=== PATIENT | male | born 1960 | race Hispanic/Latino ===

== ENCOUNTER → 2019-12-29 | Outpatient (CLI) | payer OTHER ==
[~2019-12-29] MED LIST: AMLODIPINE BESYL5 MG PO; ATORVASTATIN CA40 MG PO; CYCLOBENZAPRINE10 MG PO; HYDROCHLOROTH12.5 M1 PO; IOPAMIDOL 370 MG/ML 200 ML INFUS..BTL INJ ONE; LISINOPRIL20 MG PO; SODIUM CHLORIDE 0.9% 250ML 0 ML ONE; SODIUM CHLORIDE 0.9% 50ML 0 ML ONE; SODIUM CHLORIDE 0.9% 50ML 50 ML ONE; VESICARE
[2019-12-29 08:19] LABS: BLOOD UREA NITROGEN 16 mg/dL (7-26); BUN/CREATININE RATIO 16 (6-25); CREATININE, SERUM 0.99 mg/dL (0.72-1.25); EST GLOMERULAR FILTRATION RATE > 60 ML/MIN (60-)
--- NOTE | 2019-12-29 10:20 | Diagnostic Imaging Report ---
CT of the abdomen and pelvis, with contrast, 12/29/2019. History: Hematuria. Comparison: None available. Technique: Multidetector CT scanning of the abdomen and pelvis was performed from the level of the lung bases to the inferior pubic rami before and after intravenous administration of contrast. Scanning during arterial, venous, and delayed phases was performed. No oral contrast was given. Coronal and sagittal multiplanar reformations were obtained. RADIATION DOSE: Total DLP: 2091 mGy*cm Dose modulation, iterative reconstruction, and/or weight based adjustment of the mA/kV was utilized to reduce the radiation dose to as low as reasonably achievable. Discussion: LUNG BASES: No visualized abnormalities. ABDOMEN: 2 large oval circumscribed hypodense structures consistent with simple cysts are present in the right kidney, one posteriorly in the upper pole measuring 7.2 cm and another more centrally measuring 8.5 cm, without evidence of septation, mural nodularity, or enhancement. Multiple calyceal stones are present within the right kidney, ranging from 2 to 13 mm in diameter. There is moderate dilatation of the right upper pole calyx. The right renal pelvis is not dilated. Single ureters are identified bilaterally which are nondilated. Two 1 cm simple cysts are present in the lower pole of the left kidney. Left kidney is otherwise normal without evidence of stones, mass, or hydronephrosis. The liver, gallbladder, biliary tree, spleen, pancreas, adrenal glands, and kidneys are normal. The hepatic vein, portal vein, and splenic vein are patent. The abdominal aorta is within normal limits for size. Evaluation of bowel is limited without oral contrast. There is no bowel dilatation. The appendix is visualized and is normal. There are scattered colonic diverticuli without evidence of adjacent inflammation. There is no evidence of adenopathy or free fluid. PELVIS: The bladder, prostate, and seminal vesicles are unremarkable. Fat-containing left inguinal hernia is present. There is no evidence of free fluid or adenopathy. BONES AND SOFT TISSUES: Degenerative changes are present throughout the lumbar spine without evidence of lytic or sclerotic lesion. IMPRESSION: 1. Bilateral benign-appearing simple renal cysts, large on the right and small on the left. 2. Right nephrolithiasis with right upper pole calyceal dilatation. It is uncertain whether this is secondary to stone or compression by adjacent large cyst. 3. Colonic diverticulosis without evidence of diverticulitis. Signed by: Jer Jane on 12/29/2019 10:17 AM
== END ==
LOC: CT 07:29
PROVIDERS: ATTEND Urology
DX: D41.00 Neoplasm of uncertain behavior of unspecified kidney (principal); R31.29 Other microscopic hematuria
CPT/HCPCS: 36415; 74178; 82565; 84520; J7050; Q9967

== ENCOUNTER → 2020-02-02 | Day surgery (SDC) | payer OTHER ==
[2020-02-01 14:25] LABS: BASOPHILS # (AUTO) 0.1 (0.0-0.1); BASOPHILS % 0.5 % (0.0-1.0); EOSINOPHILS # (AUTO) 0.1 (0.0-0.4); EOSINOPHILS % 0.6 % (0.0-6.0); LYMPHOCYTES # (AUTO) 2.7 (1.0-3.2); LYMPHOCYTES % 24.2 % (18.0-39.1); MEAN CORPUSCULAR HEMOGLOBIN 29.7 pg (28-32); MEAN CORPUSCULAR HGB CONC 32.5 g/dL (31-35); MEAN CORPUSCULAR VOLUME 91.3 fL (81-99); MONOCYTES # (AUTO) 0.7 (0.2-0.8); MONOCYTES % 6.5 % (4.4-11.3); NEUTROPHILS # (AUTO) 7.4 (2.1-6.9); NEUTROPHILS % 67.7 % (38.7-80.0); PLATELET COUNT 264 x10e3/uL (140-360); RED BLOOD COUNT 4.38 x10e6/uL (4.3-5.7); RED CELL DISTRIBUTION WIDTH 15.5 % (11.7-14.4)
--- NOTE | 2020-02-01 14:44 | Diagnostic Imaging Report ---
EXAM: Abdomen Radiograph 1 View(s) INDICATION: ^PREOP COMPARISON: None FINDINGS: The bowel gas pattern is nonspecific. Moderate formed stool within the colon. No abnormal soft tissue calcification. No discrete free intraperitoneal air or fluid. Mild lower lumbar spine degenerative change. IMPRESSION: No acute abdominal radiographic abnormality. Signed by: Shubham Shell MD on 02/01/2020 2:41 PM
[2020-02-01 14:52] LABS: ANION GAP 11.8 mmol/L (8-16); BLOOD UREA NITROGEN 17 mg/dL (7-26); BUN/CREATININE RATIO 16 (6-25); CALCIUM 9.7 mg/dL (8.4-10.2); CARBON DIOXIDE 28 mmol/L (22-29); CHLORIDE 105 mmol/L (98-107); CREATININE, SERUM 1.08 mg/dL (0.72-1.25); EST GLOMERULAR FILTRATION RATE > 60 ML/MIN (60-); GLUCOSE 82 mg/dL (74-118); POTASSIUM 3.8 mmol/L (3.5-5.1); SODIUM 141 mmol/L (136-145)
[~2020-02-02] MED LIST changes: +ASPIRIN81 MG PO; +B&O 60MG R/S 60 MG SUPP PR ONE; +CALCIUM PO; +CEFTRIAXONE SOD 1 GM/NS 50 ML 50 ML IV ONE; +CITRACAL SOFT1 EACH PO; +DEXAMETHASONE SOD PHOS INJ 4 MG/ML VIAL ONE; +HUMIRA40 MG/0.8 SC; -IOPAMIDOL 370 MG/ML 200 ML INFUS..BTL INJ ONE; +IOPAMIDOL 610MG/1ML 300 MG/ML VIAL IV ONE; +LIDOCAINE HCL 2% LOCAL INJ 5 ML SDV VIAL INJ ONE; +MELOXICAM7.5 MG PO; +METFORMIN HCL500 MG PO; +METHYLPREDNISOLO4 M1 PO; +MIDAZOLAM HCL 2 MG/2 ML VIAL ONE; +MULTIVITAMINS1 EAC7 PO; +OMEPRAZOLE40 MG PO; +ONDANSETRON HCL INJ 2MG/ML 2ML 2 MG/ML VIAL ONE; +OXYBUTYNIN CHLOR5 MG PO; +PROPOFOL IV EMULSION 10 MG/ML 20 ML VIAL ONE; +SEVOFLURANE INHAL SOLN 250 ML PEN BTL ONE; -SODIUM CHLORIDE 0.9% 250ML 0 ML ONE; -SODIUM CHLORIDE 0.9% 50ML 0 ML ONE; -SODIUM CHLORIDE 0.9% 50ML 50 ML ONE; +TRIBENZOR 40-11 EACH PO; +VITAMIN A10000 UNIT PO; +VITAMIN D PO; +[UNRECOGNIZED DRUG - OTHER] PO
--- OUTSIDE RECORDS SUMMARY | 2020-02-02 05:31 | XMS REPORT | Continuity of Care Document ---
Author Author [facility] Address [address] [place] [address] ;ext= Care Team Providers Care Field Support Rep Name Role Phone DWIGHT LEYLA Admmahendra LEYLA QUINTANILLA [facility] Admission Diagnosis * No data in the System Social History Element Description Code Description Smoking Status Code System Start Date End Date Smoking Status [id number] Never smoker SNOMED-CT Problems Code Code System Problem Name Start Date End Date Status T2,T3,T4 Vertebral body fracture 03/25/2019 Active Medications RxNorm Medication Dose Route Instructions Indications Start Date End Date Status Amlodipine Oral every day Active 1191 Aspirin 81 milligram oral orally every day Active Atorvastatin Oral every day Active Losartan Oral every day Active Metformin Oral 1000 milligram oral orally once Active Allergies * No Known Allergies Results Laboratory Results Order: CBC PLATELET AUTO DIFF Specimen Source: BLOOD Body Site: [facility] Test Result Flag Range Unit Date 1Leukocytes^^corrected for nucleated erythrocytes:NCnc:Pt:Bld:Qn:Automated count 15.56 H 4.80-10.80 10^3/ul 03/25/2019 17:39 789-8 1Erythrocytes:NCnc:Pt:Bld:Qn:Automated count 4.64 L 4.70-6.10 10^6/ul 03/25/2019 17:39 718-7 1Hemoglobin:MCnc:Pt:Bld:Qn 14 14.0-18.0 gm/dl 03/25/2019 17:39 4544-3 1Hematocrit:VFr:Pt:Bld:Qn:Automated count 43.1 42.0-50.0 % 03/25/2019 17:39 787-2 1Erythrocyte mean corpuscular volume:EntVol:Pt:RBC:Qn:Automated count 92.9 80.0-94.0 fL 03/25/2019 17:39 785-6 1Erythrocyte mean corpuscular hemoglobin:EntMass:Pt:RBC:Qn:Automated count 30.2 27.0-31.0 pg 03/25/2019 17:39 786-4 1Erythrocyte mean corpuscular hemoglobin concentration:MCnc:Pt:RBC:Qn:Automated count 32.5 L 33.0-37.0 gm/dl 03/25/2019 17:39 788-0 1Erythrocyte distribution width:Ratio:Pt:RBC:Qn:Automated count 14.8 H 11.5-14.5 % 03/25/2019 17:39 777-3 1Platelets:NCnc:Pt:Bld:Qn:Automated count 261 130-400 10^3/ul 03/25/2019 17:39 89115-1 1Platelet mean volume:EntVol:Pt:Bld:Qn:Automated count 10.7 A 7.4-10.4 fL 03/25/2019 17:39 Note: 'NOT MEASURED' RESULTS ARE DISPLAYED WHEN THE INSTRUMENT HAS A SUPPRESSED OR UNREPORTABLE RESULT. THIS WILL MOST OFTEN HAPPEN WITH THE MPV WHEN THERE IS AN ABNORMAL PLATELET DISTRIBUTION DUE TO A CRITICAL LOW VALUE OR PLATELET CLUMPING. THE RDW MAY BE SUPPRESSED IF THERE ARE MULTIPLE PEAKS PRESENT ON THE RBC HISTOGRAM. IN THIS CASE, A MANUAL REVIEW OF THE SLIDE WILL BE PERFORMED, AND RBC MORPHOLOGY WILL BE NOTED ON THE REPORT. 770-8 1Neutrophils/100 leukocytes:NFr:Pt:Bld:Qn:Automated count 79.8 H 42.0-75.0 % 03/25/2019 17:39 736-9 1Lymphocytes/100 leukocytes:NFr:Pt:Bld:Qn:Automated count 13.2 13.0-42.0 % 03/25/2019 17:39 5905-5 1Monocytes/100 leukocytes:NFr:Pt:Bld:Qn:Automated count 5.5 4.0-14.0 % 03/25/2019 17:39 713-8 1Eosinophils/100 leukocytes:NFr:Pt:Bld:Qn:Automated count 0.3 L 1.0-5.0 % 03/25/2019 17:39 706-2 1Basophils/100 leukocytes:NFr:Pt:Bld:Qn:Automated count 0.4 0.0-3.0 % 03/25/2019 17:39 1IG% 0.8 H 0.0-0.4 % 03/25/2019 17:39 * Performing Lab Footnotes:* [address] [place] [address] - [id number] - [address] [place] [address] - : DIRECTOR DIYA HUGHES Order: CMP COMPREHENSIVE METABOLIC PANEL Specimen Source: BLOOD Body Site: LOINC Test Result Flag Range Unit Date 1Glucose 229 H 75-110 mg/dl 03/25/2019 17:39 1BUN 15 6.0-17.0 mg/dl 03/25/2019 17:39 1Creatinine 1.3 H 0.4-1.2 mg/dl 03/25/2019 17:39 1Sodium 138 137-145 mmol/l 03/25/2019 17:39 1Potassium 3.7 3.5-5.0 mmol/l 03/25/2019 17:39 1Chloride 105 98-107 mmol/l 03/25/2019 17:39 1CO2 24 22-30 mmol/l 03/25/2019 17:39 1Calcium 9 8.4-10.2 mg/dl 03/25/2019 17:39 1T Protein 7.7 5.1-8.7 gm/dl 03/25/2019 17:39 1Albumin 3.7 3.5-4.6 gm/dl 03/25/2019 17:39 1A/G Ratio 0.9 L 1.1-2.2 % 03/25/2019 17:39 1AST (SGOT) 33 11-36 U/L 03/25/2019 17:39 1ALT (SGPT) 42 H 11-40 U/L 03/25/2019 17:39 1Alkaline Phos 133 H 47-114 U/L 03/25/2019 17:39 1Total Bilirubin 0.3 0.2-1.2 mg/dl 03/25/2019 17:39 1Globulin 4 H 2.3-3.5 gm/dl 03/25/2019 17:39 1Calcium, Corrected 9.2 8.4-10.2 mg/dl 03/25/2019 17:39 Note: Various formulas exist for corrected serum calcium results, each yielding different values. This corrected result was based on the formula: Corrected Calcium=SerumCalcium + [0.8 * ( 4 - SerumAlbumin)] 1EGFR if >60 mL/min/1.73m^2 03/25/2019 17:39 1EGFR if Non- 60 mL/min/1.73m^2 03/25/2019 17:39 Note: Estimated Glomerular Filtration Rate (eGFR) Reference Intervals Decision Points for 18 years and older and average body mass: >=60 Does not exclude kidney disease. 30 - 59 Suggests moderate chronic kidney disease and indicates the need for further investigation including assessment of proteinuria and cardiovascular factors. < 30 Usually indicates a need for referral for assessment and management of chronic kidney failure. * Performing Lab Footnotes:* [address] [place] [address] - [id number] - [facility] [address] - MD: DIRECTOR DIYA HUGHES Radiology Results Order: [id number] CT CERVICAL SPINE W/O CONTRAST* Exam Completion Date:03/25/2019 17:36 EXAMINATION: Head and cervical spine CT without contrast. HISTORY: Headache.COM PARISON: None.TECHNIQUE: Multidetector axial images were obtained with, without contrastfrom the foramen magnum to the vertex and through the cervical spine. The imageswere reconstructed using brain and bone algorithms. Thin section brai n imageswere reformatted into coronal and sagittal planes.Intravenous contrast: None. Dose modulation, iterative reconstruction, and/or weight based adjustment of themA/kV was utilized to reduce the radiation dose to as low as reasonablyach ievable.HEAD CT FINDINGS: Skull/scalp: Large right frontotemporal scalp ovidio lorraine without underlyingfractures. No lytic or blastic lesions. No fractures. Parenchyma: Scattered small clarifications, likely sequela from remoteinfecti on such as NCC. No mass, hemorrhage or CT evidence of acute vascularinsult. Brain volume: Normal for age. Ventricles: No hydrocephalus or displaceme nt. Arteries: No density suggestive of thrombus. Dural sinuses: No ab normal density. Extra-axial spaces: No abnormal density. Bening right Tempo ral arachnoidcyst without mass effect. Foramen magnum: No mass, Chiari malfo rmation, or basilar invagination. Sella: No obvious mass. Paranasal/m astoid sinuses: Imaged portions unremarkable. CERVICAL SPINE CT FINDINGS: Ali gnment: Normal alignment and lordosis. Soft tissues: Normal. Vertebrae: N ormal height and density. No acute fracture, infection orneoplasm. Interverte bral disk degenerative changes: Anterior bridging osteophytes fromC2 to C7. No s ignificant canal or foraminal stenosis. IMPRESSION:CT Head:1. Large right fro ntotemporal scalp hematoma without underlying fractures.2. No postraumatic intr acranial hemorrhage.CT Cervical:1. No acute fractures or dislocations.2. Chron ic degenerative changes as described.Note: Acute postraumatic spinal cord, vascu lar or ligamentous injuries cannot beexcluded on the basis of the current examin ation.This final report was electronically signed by Dr Malathi Ledbetter MD 03/25/2019 6:22PMDictated By: MALATHI LEDBETTERDate: 03/25/2019 18:22 Order: [id number] CT HEAD W/O CONTRAST* Exam Completion Date:03/25/2019 17:36 EXAMINATION: Head and cervical spine CT without contrast. HISTORY: Headache.COM PARISON: None.TECHNIQUE: Multidetector axial images were obtained with, without contrastfrom the foramen magnum to the vertex and through the cervical spine. The imageswere reconstructed using brain and bone algorithms. Thin section brai n imageswere reformatted into coronal and sagittal planes.Intravenous contrast: None. Dose modulation, iterative reconstruction, and/or weight based adjustment of themA/kV was utilized to reduce the radiation dose to as low as reasonablyach ievable.HEAD CT FINDINGS: Skull/scalp: Large right frontotemporal scalp ovidio lorraine without underlyingfractures. No lytic or blastic lesions. No fractures. Parenchyma: Scattered small clarifications, likely sequela from remoteinfecti on such as NCC. No mass, hemorrhage or CT evidence of acute vascularinsult. Brain volume: Normal for age. Ventricles: No hydrocephalus or displaceme nt. Arteries: No density suggestive of thrombus. Dural sinuses: No ab normal density. Extra-axial spaces: No abnormal density. Bening right Tempo ral arachnoidcyst without mass effect. Foramen magnum: No mass, Chiari malfo rmation, or basilar invagination. Sella: No obvious mass. Paranasal/m astoid sinuses: Imaged portions unremarkable. CERVICAL SPINE CT FINDINGS: Ali gnment: Normal alignment and lordosis. Soft tissues: Normal. Vertebrae: N ormal height and density. No acute fracture, infection orneoplasm. Interverte bral disk degenerative changes: Anterior bridging osteophytes fromC2 to C7. No s ignificant canal or foraminal stenosis. IMPRESSION:CT Head:1. Large right fro ntotemporal scalp hematoma without underlying fractures.2. No postraumatic intr acranial hemorrhage.CT Cervical:1. No acute fractures or dislocations.2. Chron ic degenerative changes as described.Note: Acute postraumatic spinal cord, vascu lar or ligamentous injuries cannot beexcluded on the basis of the current examin ation.This final report was electronically signed by Dr Malathi Ledbetter MD 03/25/2019 6:22PMDictated By: MALATHI LEDBETTERDate: 03/25/2019 18:22 Order: [id number] CT CHEST W/CONTRAST* Exam Completion Date:03/25/2019 17:36 EXAM: CT Chest, Abdomen and Pelvis WITH contrast INDICATION: Trauma. COMPARISON : None.TECHNIQUE: Chest, abdomen and pelvis were scanned utilizing a multidetect orhelical scanner from the lung apex to the pubic symphysis before and afteradmi nistration of IV contrast. Coronal and sagittal reformations were obtained.Routi ne protocol was performed. Scan was performed when during portal venousphase. IV CONTRAST: 100 cc of Isovue 300. ORAL CONTRAST: None RADIATION DOSE: Total DLP: 2076.3 mGy*cm CTDIvol has been rev iewed. It is below the limits set by the Radiation ProtocolCommittee (RPC). Dose lowering techniques utilized as appropriate. COMPLICATIONS: NoneFIND INGS:LINES and TUBES: None.LUNGS AND AIRWAYS: Central airways are patent. No car dence of pneumonia orpulmonary edema. There is a 3 mm calcified granuloma in the right middle lobe. A2 mm solid nodule in the right middle lobe on series 4, anant ge 92.PLEURA: The pleural spaces are clear.HEART AND MEDIASTINUM: The thyroid gl and is normal. No mediastinal, hilar oraxillary lymphadenopathy. The heart is normal in size.. There is no pericardialeffusion. There are moderate atheroscle rotic calcifications in the coronaryarteries.HEPATOBILIARY: The liver is diffuse hypodense compared to the spleen, consistentwith diffuse hepatic diffuse hepatic steatosis. No focal hepatic lesions. Nobiliary ductal dilation. GALLBLADDER: No radio-opaque stones or sludge. No wall thickening.SPLEEN: No splenomegaly. PANCREAS: No focal masses or ductal dilatation. ADRENALS: No adrenal nodules KIDNEYS/URETERS: Kidneys enhance symmetrically. Multiple right-sided simpleappe aring peripelvic cysts. Moderate right hydronephrosis without hydroureter.There is a right upper pole peripelvic cyst. Subcentimeter left renalhypodensities are too small to characterize. No evidence of left-sided stone.Multiple punctate ri ght-sided renal stones. Layering stones are noted on series5, image 70.GI TRACT: No abnormal distention, wall thickening, or evidence of bowelobstruction. Appendix is normal.PELVIC ORGANS/BLADDER: Unremarkable.LYMPH NODES: No lymphade nopathy.VESSELS: Minimal scattered atherosclerotic changes in the abdominal aort a.PERITONEUM / RETROPERITONEUM: No free air or fluid.BONES: There is an obliquel y oriented fracture extending from the superior toinferior endplate of T2 extend ing into the T3 vertebral body where it involvesthe superior and inferior endpla aly and posterior cortex, and possibly into theT4 vertebral body. There is appro ximately 1 mm of displacement of the posteriorsuperior aspect of the T3 vertebra l body without significant retropulsion orcanal narrowing.SOFT TISSUES: Unremark able. IMPRESSION: Complex obliquely oriented fracture involving the T 2 and T3 vertebral bodies,and possibly the T4 vertebral body. Involvement of the posterior cortex of theT2 vertebral body with approximately 1 mm displacement. No significant bonyretropulsion or canal narrowing. Suggest thoracic spine MRI f or evaluation forsoft tissue injury. No evidence of acute traumatic abnormality in the abdomen or pelvis.Multiple right-sided peripelvic cysts with nonobstructi ng renal stones. Moderateright hydronephrosis without evidence of hydroureter. H epatic steatosis. This final report was electronically signed by Dr August Varner MD 03/25/2019 6:39PMDictated By: TITO VARNERRDate: 03/25/2019 18:39 Order: [id number] CT ABDOMEN/PELVIS W/CONTRAST* Exam Completion Date:03/25/2019 17:36 EXAM: CT Chest, Abdomen and Pelvis WITH contrast INDICATION: Trauma. COMPARISON : None.TECHNIQUE: Chest, abdomen and pelvis were scanned utilizing a multidetect orhelical scanner from the lung apex to the pubic symphysis before and afteradmi nistration of IV contrast. Coronal and sagittal reformations were obtained.Routi ne protocol was performed. Scan was performed when during portal venousphase. IV CONTRAST: 100 cc of Isovue 300. ORAL CONTRAST: None RADIATION DOSE: Total DLP: 2076.3 mGy*cm CTDIvol has been rev iewed. It is below the limits set by the Radiation ProtocolCommittee (RPC). Dose lowering techniques utilized as appropriate. COMPLICATIONS: NoneFIND INGS:LINES and TUBES: None.LUNGS AND AIRWAYS: Central airways are patent. No car dence of pneumonia orpulmonary edema. There is a 3 mm calcified granuloma in the right middle lobe. A2 mm solid nodule in the right middle lobe on series 4, anant ge 92.PLEURA: The pleural spaces are clear.HEART AND MEDIASTINUM: The thyroid gl and is normal. No mediastinal, hilar oraxillary lymphadenopathy. The heart is normal in size.. There is no pericardialeffusion. There are moderate atheroscle rotic calcifications in the coronaryarteries.HEPATOBILIARY: The liver is diffuse hypodense compared to the spleen, consistentwith diffuse hepatic diffuse hepatic steatosis. No focal hepatic lesions. Nobiliary ductal dilation. GALLBLADDER: No radio-opaque stones or sludge. No wall thickening.SPLEEN: No splenomegaly. PANCREAS: No focal masses or ductal dilatation. ADRENALS: No adrenal nodules KIDNEYS/URETERS: Kidneys enhance symmetrically. Multiple right-sided simpleappe aring peripelvic cysts. Moderate right hydronephrosis without hydroureter.There is a right upper pole peripelvic cyst. Subcentimeter left renalhypodensities are too small to characterize. No evidence of left-sided stone.Multiple punctate ri ght-sided renal stones. Layering stones are noted on series5, image 70.GI TRACT: No abnormal distention, wall thickening, or evidence of bowelobstruction. Appendix is normal.PELVIC ORGANS/BLADDER: Unremarkable.LYMPH NODES: No lymphade nopathy.VESSELS: Minimal scattered atherosclerotic changes in the abdominal aort a.PERITONEUM / RETROPERITONEUM: No free air or fluid.BONES: There is an obliquel y oriented fracture extending from the superior toinferior endplate of T2 extend ing into the T3 vertebral body where it involvesthe superior and inferior endpla aly and posterior cortex, and possibly into theT4 vertebral body. There is appro ximately 1 mm of displacement of the posteriorsuperior aspect of the T3 vertebra l body without significant retropulsion orcanal narrowing.SOFT TISSUES: Unremark able. IMPRESSION: Complex obliquely oriented fracture involving the T 2 and T3 vertebral bodies,and possibly the T4 vertebral body. Involvement of the posterior cortex of theT2 vertebral body with approximately 1 mm displacement. No significant bonyretropulsion or canal narrowing. Suggest thoracic spine MRI f or evaluation forsoft tissue injury. No evidence of acute traumatic abnormality in the abdomen or pelvis.Multiple right-sided peripelvic cysts with nonobstructi ng renal stones. Moderateright hydronephrosis without evidence of hydroureter. H epatic steatosis. This final report was electronically signed by Dr August Varner MD 03/25/2019 6:39PMDictated By: TITO VARNERRDate: 03/25/2019 18:39 Vital Signs Vitals Value Date BP Systolic 147 mmHg 03/25/2019 BP Diastolic 73 mmHg 03/25/2019 Pulse Rate 79 (beats)/min 03/25/2019 Respiratory Rate 18 (breaths)/min 03/25/2019 O2% BldC Oximetry 95 % 03/25/2019 Body Temperature 98.2 F 03/25/2019 Height 67 in 03/25/2019 Weight Measured 167.99 lbs 03/25/2019 BSA (Body Surface Area) 1.75617 m2 03/25/2019 BMI (Body Mass Index) 26.3 kg/m2 03/25/2019 Advance Directives Patient does NOT have Living Will Directive Type Effective Date Tromper Notes Supporting Document Name Address Phone No Directive Type specified 03/25/2019 19:23 Not Specified Not Specified Not Specified None No Family History * No Data Reported Plan of Care * No data in the system Procedures Code Code System Procedure Name Target Site Date of Procedure CT ABDOMEN/PELVIS W/CONTRAST 03/25/2019 18:45 Encounters * No data in the system Immunizations * No data in the system Functional Status * No data in the system Hospital Discharge Instructions * No data in the system
--- OUTSIDE RECORDS SUMMARY | 2020-02-02 05:31 | XMS REPORT ---
Author Author [facility] Address Unknown Phone Unavailable Care Team Providers Care Jacker Name Role Phone LUIS CADENA Unavailable Unavailable Problems This patient has no known problems. Allergies, Adverse Reactions, Alerts This patient has no known allergies or adverse reactions. Medications This patient has no known medications. Encounters Start Date/Time End Date/Time Encounter Type Admission Type Attending [facility] Facility Care Department Encounter ID 2019-06-21 16:28:26 Outpatient [facility] [id number] 2019-09-08 06:55:00 2019-09-08 06:55:00 Outpatient [facility] [id number] 2019-08-07 12:11:00 2019-08-07 12:11:00 Outpatient [facility] [id number] 2019-06-23 06:18:00 2019-06-23 06:18:00 Outpatient [facility] [id number] 2019-06-03 19:56:00 2019-06-03 19:56:00 Emergency E [facility] [id number] 2019-04-13 03:20:00 2019-04-12 20:59:00 Inpatient E [facility] [id number] 2019-03-26 01:04:00 2019-03-25 21:13:00 Inpatient U [facility] [id number] Results Test Description Test Time Test Comments Text Results Atomic Results Result Comments ABDOMEN-1VIEW (KUB) 2020-02-01 14:37:00 [facility] [address] [place] [address] Patient Name: RM SCHUMACHER MR #: [id number] : 1960 Age/Sex: 60/M Req #: [id number] Adm Physician: Ordered by: LUIS CADENA MD Report #: [id number] Location: OR Room/Bed: Procedure: [id number] DX/ABDOMEN-1VIEW (KUB) Exam Date: Exam Time: REPORT STATUS: Signed EXAM: Abdomen Radiograph 1 View(s) INDICATION: PREOP COMPARISON: None FINDINGS: The bowel gas pattern is nonspecific. Moderate formed stool within the colon. No abnormal soft tissue calcification. No discrete free intraperitoneal air or fluid. Mild lower lumbar spine degenerative change. IMPRESSION: No acute abdominal radiographic abnormality. Signed by: Bertrand Santos MD on 02/01/2020 2:41 PM Dictated By: BERTRAND SANTOS MD 1441 Transcribed By: JEFFERSON on 02/01/20 1441 COPY TO: LUIS CADENA MD CT ABDOMEN/PELVIS WOW 2019-12-29 10:00:00 [place] [address] Patient Name: RM SCHUMACHER MR #: [id number] : 1960 Age/Sex: 59/M Req #: [id number] Adm Physician: Ordered by: LUIS CADENA MD Report #: [id number] Location: CT Room/Bed: Procedure: [id number] CT/CT ABDOMEN/PELVIS WOW Exam Date: 12/29/19 Exam Time: 0850 REPORT STATUS: Signed CT of the abdomen and pelvis, with contrast, 12/29/2019. History: Hematuria. Comparison: None available. Technique: Multidetector CT scanning of the abdomen and pelvis was performed from the level of the lung bases to the inferior pubic rami before and after intravenous administration of contrast. Scanning during arterial, venous, and delayed phases was performed. No oral contrast was given. Coronal and sagittal multiplanar reformations were obtained. RADIATION DOSE: Total DLP: 2091 mGy*cm Dose modulation, iterative reconstruction, and/or weight based adjustment of the mA/kV was utilized to reduce the radiation dose to as low as reasonably achievable. Discussion: LUNG BASES: No visualized abnormalities. ABDOMEN: 2 large oval circumscribed hypodense structures consistent with simple cysts are present in the right kidney, one posteriorly in the upper pole measuring 7.2 cm and another more centrally measuring 8.5 cm, without evidence of septation, mural nodularity, or enhancement. Multiple calyceal stones are present within the right kidney, ranging from 2 to 13 mm in diameter. There is moderate dilatation of the right upper pole calyx. The right renal pelvis is not dilated. Single ureters are identified bilaterally which are nondilated. Two 1 cm simple cysts are present in the lower pole of the left kidney. Left kidney is otherwise normal without evidence of stones, mass, or hydronephrosis. The liver, gallbladder, biliary tree, spleen, pancreas, adrenal glands, and kidneys are normal. The hepatic vein, portal vein, and splenic vein are patent. The abdominal aorta is within normal limits for size. Evaluation of bowel is limited without oral contrast. There is no bowel dilatation. The appendix is visualized and is normal. There are scattered colonic diverticuli without evidence of adjacent inflammation. There is no evidence of adenopathy or free fluid. PELVIS: The bladder, prostate, and seminal vesicles are unremarkable. Fat-containing left inguinal hernia is present. There is no evidence of free fluid or adenopathy. BONES AND SOFT TISSUES: Degenerative changes are present throughout the lumbar spine without evidence of lytic or sclerotic lesion. IMPRESSION: 1. Bilateral benign-appearing simple renal cysts, large on the right and small on the left. 2. Right nephrolithiasis with right upper pole calyceal dilatation. It is uncertain whether this is secondary to stone or compression by adjacent large cyst. 3. Colonic diverticulosis without evidence of diverticulitis. Signed by: Jer Jane on 12/29/2019 10:17 AM Dictated By: JER JANE MD 1017 Transcribed By: JEFFERSON on 12/29/19 1017 COPY TO: LUIS CADENA MD CT ABDOMEN/PELVIS W/CONTRAST 2019-03-25 18:45:30 EXAM: CT Chest, Abdomen and Pelvis WITH contrastINDICATION: Trauma.COMPARISON: None.TECHNIQUE: Chest, abdomen and pelvis were scanned utilizing a multidetectorhelical scanner from the lung apex to the pubic symphysis before and afteradministration of IV contrast. Coronal and sagittal reformations were obtained.Routine protocol was performed. Scan was performed when during portal venousphase.IV CONTRAST: 100 cc of Isovue 300.ORAL CONTRAST: NoneRADIATION DOSE: Total DLP: 2076.3 mGy*cmCTDIvol has been reviewed. It is below the limits set by the Radiation ProtocolCommittee (RPC). Dose lowering techniques utilized as appropriate.COMPLICATIONS: NoneFINDINGS:LINES and TUBES: None.LUNGS AND AIRWAYS: Central airways are patent. No evidence of pneumonia orpulmonary edema. There is a 3 mm calcified granuloma in the right middle lobe. A2 mm solid nodule in the right middle lobe on series 4, image 92.PLEURA: The pleural spaces are clear.HEART AND MEDIASTINUM: The thyroid gland is normal. No mediastinal, hilar oraxillary lymphadenopathy. The heart is normal in size.. There is no pericardialeffusion. There are moderate atherosclerotic calcifications in the coronaryarteries.HEPATOBILIARY: The liver is diffuse hypodense compared to the spleen, consistentwith diffuse hepatic diffuse hepatic steatosis. No focal hepatic lesions. Nobiliary ductal dilation.GALLBLADDER: No radio-opaque stones or sludge. No wall thickening.SPLEEN: No splenomegaly.PANCREAS: No focal masses or ductal dilatation.ADRENALS: No adrenal nodulesKIDNEYS/URETERS: Kidneys enhance symmetrically. Multiple right-sided simpleappearing peripelvic cysts. Moderate right hydronephrosis without hydroureter.There is a right upper pole peripelvic cyst. Subcentimeter left renalhypodensities are too small to characterize. No evidence of left-sided stone.Multiple punctate right-sided renal stones. Layering stones are noted on series5, image 70.GI TRACT: No abnormal distention, wall thickening, or evidence of bowelobstruction. Appendix is normal.PELVIC ORGANS/BLADDER: Unremarkable.LYMPH NODES: No lymphadenopathy.VESSELS: Minimal scattered atherosclerotic changes in the abdominal aorta.PERITONEUM / RETROPERITONEUM: No free air or fluid.BONES: There is an obliquely oriented fracture extending from the superior toinferior endplate of T2 extending into the T3 vertebral body where it involvesthe superior and inferior endplates and posterior cortex, and possibly into theT4 vertebral body. There is approximately 1 mm of displacement of the posteriorsuperior aspect of the T3 vertebral body without significant retropulsion orcanal narrowing.SOFT TISSUES: Unremarkable.IMPRESSION:Complex obliquely oriented fracture involving the T2 and T3 vertebral bodies,and possibly the T4 vertebral body. Involvement of the posterior cortex of theT2 vertebral body with approximately 1 mm displacement. No significant bonyretropulsion or canal narrowing. Suggest thoracic spine MRI for evaluation forsoft tissue injury.No evidence of acute traumatic abnormality in the abdomen or pelvis.Multiple right-sided peripelvic cysts with nonobstructing renal stones. Moderateright hydronephrosis without evidence of hydroureter.Hepatic steatosis.This final report was electronically signed by Dr August Varner MD 03/25/2019 6:39PMDictated By: TITO VARNERRDate: 03/25/2019 18:39 CT CHEST W/CONTRAST 2019-03-25 18:45:25 EXAM: CT Chest, Abdomen and Pelvis WITH contrastINDICATION: Trauma.COMPARISON: None.TECHNIQUE: Chest, abdomen and pelvis were scanned utilizing a multidetectorhelical scanner from the lung apex to the pubic symphysis before and afteradministration of IV contrast. Coronal and sagittal reformations were obtained.Routine protocol was performed. Scan was performed when during portal venousphase.IV CONTRAST: 100 cc of Isovue 300.ORAL CONTRAST: NoneRADIATION DOSE: Total DLP: 2076.3 mGy*cmCTDIvol has been reviewed. It is below the limits set by the Radiation ProtocolCommittee (RPC). Dose lowering techniques utilized as appropriate.COMPLICATIONS: NoneFINDINGS:LINES and TUBES: None.LUNGS AND AIRWAYS: Central airways are patent. No evidence of pneumonia orpulmonary edema. There is a 3 mm calcified granuloma in the right middle lobe. A2 mm solid nodule in the right middle lobe on series 4, image 92.PLEURA: The pleural spaces are clear.HEART AND MEDIASTINUM: The thyroid gland is normal. No mediastinal, hilar oraxillary lymphadenopathy. The heart is normal in size.. There is no pericardialeffusion. There are moderate atherosclerotic calcifications in the coronaryarteries.HEPATOBILIARY: The liver is diffuse hypodense compared to the spleen, consistentwith diffuse hepatic diffuse hepatic steatosis. No focal hepatic lesions. Nobiliary ductal dilation.GALLBLADDER: No radio-opaque stones or sludge. No wall thickening.SPLEEN: No splenomegaly.PANCREAS: No focal masses or ductal dilatation.ADRENALS: No adrenal nodulesKIDNEYS/URETERS: Kidneys enhance symmetrically. Multiple right-sided simpleappearing peripelvic cysts. Moderate right hydronephrosis without hydroureter.There is a right upper pole peripelvic cyst. Subcentimeter left renalhypodensities are too small to characterize. No evidence of left-sided stone.Multiple punctate right-sided renal stones. Layering stones are noted on series5, image 70.GI TRACT: No abnormal distention, wall thickening, or evidence of bowelobstruction. Appendix is normal.PELVIC ORGANS/BLADDER: Unremarkable.LYMPH NODES: No lymphadenopathy.VESSELS: Minimal scattered atherosclerotic changes in the abdominal aorta.PERITONEUM / RETROPERITONEUM: No free air or fluid.BONES: There is an obliquely oriented fracture extending from the superior toinferior endplate of T2 extending into the T3 vertebral body where it involvesthe superior and inferior endplates and posterior cortex, and possibly into theT4 vertebral body. There is approximately 1 mm of displacement of the posteriorsuperior aspect of the T3 vertebral body without significant retropulsion orcanal narrowing.SOFT TISSUES: Unremarkable.IMPRESSION:Complex obliquely oriented fracture involving the T2 and T3 vertebral bodies,and possibly the T4 vertebral body. Involvement of the posterior cortex of theT2 vertebral body with approximately 1 mm displacement. No significant bonyretropulsion or canal narrowing. Suggest thoracic spine MRI for evaluation forsoft tissue injury.No evidence of acute traumatic abnormality in the abdomen or pelvis.Multiple right-sided peripelvic cysts with nonobstructing renal stones. Moderateright hydronephrosis without evidence of hydroureter.Hepatic steatosis.This final report was electronically signed by Dr August Varner MD 03/25/2019 6:39PMDictated By: TITO VARNERRDate: 03/25/2019 18:39 CT CERVICAL SPINE W/O CONTRAST 2019-03-25 18:29:23 EXAMINATION: Head and cervical spine CT without contrast.HISTORY: Headache.COMPARISON: None.TECHNIQUE: Multidetector axial images were obtained with, without contrastfrom the foramen magnum to the vertex and through the cervical spine. The imageswere reconstructed using brain and bone algorithms. Thin section brain imageswere reformatted into coronal and sagittal planes.Intravenous contrast: None.Dose modulation, iterative reconstruction, and/or weight based adjustment of themA/kV was utilized to reduce the radiation dose to as low as reasonablyachievable.HEAD CT FINDINGS:Skull/scalp: Large right frontotemporal scalp hematoma without underlyingfractures. No lytic or blastic lesions. No fractures.Parenchyma: Scattered small clarifications, likely sequela from remoteinfection such as NCC. No mass, hemorrhage or CT evidence of acute vascularinsult.Brain volume: Normal for age.Ventricles: No hydrocephalus or displacement.Arteries: No density suggestive of thrombus.Dural sinuses: No abnormal density.Extra-axial spaces: No abnormal density. Bening right Temporal arachnoidcyst without mass effect.Foramen magnum: No mass, Chiari malformation, or basilar invagination.Sella: No obvious mass.Paranasal/mastoid sinuses: Imaged portions unremarkable.CERVICAL SPINE CT FINDINGS:Alignment: Normal alignment and lordosis.Soft tissues: Normal.Vertebrae: Normal height and density. No acute fracture, infection orneoplasm.Intervertebral disk degenerative changes: Anterior bridging osteophytes fromC2 to C7. No significant canal or foraminal stenosis.IMPRESSION:CT Head:1. Large right frontotemporal scalp hematoma without underlying fractures.2. No postraumatic intracranial hemorrhage.CT Cervical:1. No acute fractures or dislocations.2. Chronic degenerative changes as described.Note: Acute postraumatic spinal cord, vascular or ligamentous injuries cannot beexcluded on the basis of the current examination.This final report was electronically signed by Dr Luther Ledbetter MD 03/25/2019 6:22PMDictated By: LUTHER LEDBETTERDate: 03/25/2019 18:22 CT HEAD W/O CONTRAST 2019-03-25 18:29:18 EXAMINATION: Head and cervical spine CT without contrast.HISTORY: Headache.COMPARISON: None.TECHNIQUE: Multidetector axial images were obtained with, without contrastfrom the foramen magnum to the vertex and through the cervical spine. The imageswere reconstructed using brain and bone algorithms. Thin section brain imageswere reformatted into coronal and sagittal planes.Intravenous contrast: None.Dose modulation, iterative reconstruction, and/or weight based adjustment of themA/kV was utilized to reduce the radiation dose to as low as reasonablyachievable.HEAD CT FINDINGS:Skull/scalp: Large right frontotemporal scalp hematoma without underlyingfractures. No lytic or blastic lesions. No fractures.Parenchyma: Scattered small clarifications, likely sequela from remoteinfection such as NCC. No mass, hemorrhage or CT evidence of acute vascularinsult.Brain volume: Normal for age.Ventricles: No hydrocephalus or displacement.Arteries: No density suggestive of thrombus.Dural sinuses: No abnormal density.Extra-axial spaces: No abnormal density. Bening right Temporal arachnoidcyst without mass effect.Foramen magnum: No mass, Chiari malformation, or basilar invagination.Sella: No obvious mass.Paranasal/mastoid sinuses: Imaged portions unremarkable.CERVICAL SPINE CT FINDINGS:Alignment: Normal alignment and lordosis.Soft tissues: Normal.Vertebrae: Normal height and density. No acute fracture, infection orneoplasm.Intervertebral disk degenerative changes: Anterior bridging osteophytes fromC2 to C7. No significant canal or foraminal stenosis.IMPRESSION:CT Head:1. Large right frontotemporal scalp hematoma without underlying fractures.2. No postraumatic intracranial hemorrhage.CT Cervical:1. No acute fractures or dislocations.2. Chronic degenerative changes as described.Note: Acute postraumatic spinal cord, vascular or ligamentous injuries cannot beexcluded on the basis of the current examination.This final report was electronically signed by Dr Lutehr Ledbetter MD 03/25/2019 6:22PMDictated By: LUTHER LEDBETTERDate: 03/25/2019 18:22 [facility] 2019-03-25 18:06:00 Glucose (test code=GLU) 229 mg/dl 75-110 BUN (test code=BUN) 15.0 mg/dl 6.0-17.0 Creatinine (test code=CREA) 1.3 mg/dl 0.4-1.2 Sodium (test code=NA) 138 mmol/l 137-145 Potassium (test code=K) 3.7 mmol/l 3.5-5.0 Chloride (test code=CL) 105 mmol/l 98-107 CO2 (test code=CO2) 24 mmol/l 22-30 Calcium (test code=CALC) 9.0 mg/dl 8.4-10.2 T Protein (test code=TP) 7.7 gm/dl 5.1-8.7 Albumin (test code=ALB) 3.7 gm/dl 3.5-4.6 A/G Ratio (test code=AGRAT) 0.9 % 1.1-2.2 AST (SGOT) (test code=AST) 33 U/L 11-36 ALT (SGPT) (test code=ALT) 42 U/L 11-40 Alkaline Phos (test code=ALKP) 133 U/L 47-114 Total Bilirubin (test code=TBIL) 0.3 mg/dl 0.2-1.2 Globulin (test code=GLOBU) 4.0 gm/dl 2.3-3.5 Calcium, Corrected (test code=CALCCORR) 9.2 mg/dl 8.4-10.2 Various formulas exist for corrected serum calcium results, each yielding different values. This corrected result was based on the formula: Corrected Calcium=SerumCalcium + [0.8 * ( 4 - SerumAlbumin)] EGFR if (test code=EGFRAA) >60 mL/min/1.73m\\S\\2 EGFR if Non- (test code=EGFRNA) 60 mL/min/1.73m\\S\\2 Estimated Glomerular Filtration Rate (eGFR) Reference Intervals Decision Points for 18 years and older and average body mass: >=60 Does not exclude kidney disease. 30 - 59 Suggests moderate chronic kidney disease and indicates the need for further investigation including assessment of proteinuria and cardiovascular factors. < 30 Usually indicates a need for referral for assessment and management of chronic kidney failure. CBC WITH AUTO [id number] 17:46:00* Test Item Value Reference Range Comments WBC (test code=WBC) 15.56 10\\S\\3/ul 4.80-10.80 RBC (test code=RBC) 4.64 10\\S\\6/ul 4.70-6.10 Hemoglobin (test code=HGB) 14.0 gm/dl 14.0-18.0 Hematocrit (test code=HCT) 43.1 % 42.0-50.0 MCV (test code=MCV) 92.9 fL 80.0-94.0 MCH (test code=MCH) 30.2 pg 27.0-31.0 MCHC (test code=MCHC) 32.5 gm/dl 33.0-37.0 RDW (test code=RDWVC) 14.8 % 11.5-14.5 Platelet (test code=PLT) 261 10\\S\\3/ul 130-400 MPV (test code=MPV) 10.7 fL 7.4-10.4 "NOT MEASURED" RESULTS ARE DISPLAYED WHEN THE INSTRUMENT HAS A SUPPRESSED OR UNREPORTABLE RESULT. THIS WILL MOST OFTEN HAPPEN WITH THE MPV WHEN THERE IS AN ABNORMAL PLATELET DISTRIBUTION DUE TO A CR ITICAL LOW VALUE OR PLATELET CLUMPING. THE RDW MAY BE SUPPRESSED IF THERE ARE MULTIPLE PEAKS PRESENT ON THE RBC HISTOGRAM. IN THIS CASE, A MANUAL REVIEW OF THE SLIDE WILL BE PERFORMED, AND RBC MORPHOLOGY WILL BE NOTED ON THE REPORT. NE% (test code=NE) 79.8 % 42.0-75.0 LY% (test code=LY) 13.2 % 13.0-42.0 MO% (test code=MO) 5.5 % 4.0-14.0 EO% (test code=EO) 0.3 % 1.0-5.0 BA% (test code=BA) 0.4 % 0.0-3.0 IG% (test code=IG%) 0.8 % 0.0-0.4
--- OUTSIDE RECORDS SUMMARY | 2020-02-02 05:31 | XMS REPORT | Summary of Care ---
Author Author [facility] Address Unknown Phone Unavailable Care Team Providers Care Mattress Renovator Name Role Phone RONI JUNIOR M.D. Unavailable Unavailable Roni Junior MD Unavailable Unavailable [facility] Unavailable Unavailable MALCOM NUNEZ, GONZALO Melgoza Unavailable Unavailable BYRON WATERS MD Unavailable Unavailable JOAQUÍN JONAS, ANDRA Recio Unavailable Unavailable Unavailable Unavailable Functional Status Name Dates Details Functional status health issues are not documented Status: Name Dates Details Cognitive status health issues are not documented Status: Problems Name Dates Details S/P flap graft (V45.89, Z98.890) Status: Active Postoperative seroma of subcutaneous tissue after non-dermatologic procedure (998.13, L76.34) Status: Active Medications Name Dates Details Acetaminophen-Codeine #4 300-60 MG Oral Tablet take 1 tablet q6h prn pain Quantity: 40 BLAKKOLB Hemal.Maura., RONI * Start : 05-May-2019 Active Sulfamethoxazole-Trimethoprim 800-160 MG Oral Tablet TAKE 1 TABLET TWICE DAILY UNTIL FINISHED. * Quantity: 14 Refills: 0 BLAKKOLB M.D., RONI * Start : 21-Sep-2019 Active Allergies and Adverse Reactions Name Dates Details No Known Drug Allergies (Allergy) Status: Active Procedures Procedure Dates Details VR Vascular/Interventional Radiology Consult Date: 30-Aug-2019 Immunization Name Dates Details Immunizations not documented Family History Name Dates Details No pertinent family history (V49.89, Z78.9) Status: Active Social History Name Dates Details - Status: Name Dates Details Never smoker Vital Signs Date Test Result Details 8-Tle-549814:58 BP Systolic 149 mm[Hg] Status: Comments: Location: LUE; Position: Sitting BP Diastolic 80 mm[Hg] Status: Comments: Location: LUE; Position: Sitting Height 65 in Status: Weight 246.6 lb Status: Body Mass Index Calculated 41.04 kg/m2 Status: Body Surface Area Calculated 2.16 m2 Status: Temperature 96.5 f Status: Comments: Method: Tympanic Heart Rate 76 /min Status: [id number]-Oxb-[id number]:14 BP Systolic 142 mm[Hg] Status: Comments: Location: LUE; Position: Sitting BP Diastolic 81 mm[Hg] Status: Comments: Location: LUE; Position: Sitting Height 65 in Status: Weight 246.6 lb Status: Body Mass Index Calculated 41.04 kg/m2 Status: Body Surface Area Calculated 2.16 m2 Status: Temperature 97.9 f Status: Comments: Method: Tympanic Heart Rate 72 /min Status: Results Date Description Value Details Results not documented Plan of Care Name Dates Details Planned Observations Planned Goals not documented Instructions Name Dates Details Instructions not documented Encounters Appointment; RONI JUNIOR M.D. Encounter Diagnosis: Problem not documented On: 08-May-2019 15:30 Appointment; RONI JUNIOR M.D. Encounter Diagnosis: Problem not documented On: 22-May-2019 10:15 Appointment; RONI JUNIOR M.D. Encounter Diagnosis: Problem not documented On: 29-May-2019 10:00 Appointment; RONI JUNIOR M.D. Encounter Diagnosis: Problem not documented On: 05-Jun-2019 10:45 Appointment; RONI JUNIOR M.D. Encounter Diagnosis: Problem not documented On: 12-Jun-2019 10:45 Appointment; RONI JUNIOR M.D. Encounter Diagnosis: Problem not documented On: 15-Jun-2019 10:15 Appointment; RONI JUNIOR M.D. Encounter Diagnosis: Problem not documented On: 19-Jun-2019 10:45 Appointment; RONI JUNIOR M.D. Encounter Diagnosis: Problem not documented On: 03-Jul-2019 9:45 Appointment; RONI JUNIOR M.D. Encounter Diagnosis: Problem not documented On: 06-Jul-2019 13:45 Appointment; JOSE GAY P.A. Encounter Diagnosis: Problem not documented On: 11-Jul-2019 9:00 Appointment; RONI JUNIOR M.D. Encounter Diagnosis: Problem not documented On: 17-Jul-2019 8:30 Appointment; RONI JUNIOR M.D. Encounter Diagnosis: Problem not documented On: 27-Jul-2019 10:30 Appointment; RONI JUNIOR M.D. Encounter Diagnosis: Problem not documented On: 27-Jul-2019 13:15 Appointment; RONI JUNIOR M.D. Encounter Diagnosis: Problem not documented On: 31-Jul-2019 11:00 Appointment; RONI JUNIOR M.D. Encounter Diagnosis: Problem not documented On: 21-Aug-2019 9:30 Appointment; RADIOLOGY, MD PROVIDER Encounter Diagnosis: Problem not documented On: 21-Sep-2019 8:30 Appointment; RONI JUNIOR M.D. Encounter Diagnosis: Problem not documented On: 21-Sep-2019 10:00 Appointment; RONI JUNIOR M.D. Encounter Diagnosis: Problem not documented On: 28-Sep-2019 12:30
[2020-02-02 09:10] VITALS: BP 139/84
--- NOTE | 2020-02-14 20:42 | Operative Report ---
DATE OF PROCEDURE: 02/02/2020 SURGEON: Gautam Gamino MD PREOPERATIVE DIAGNOSES: 1. Right nephrolithiasis. 2. Right hydronephrosis. 3. Urinary tract infections. POSTOPERATIVE DIAGNOSES: 1. Right nephrolithiasis. 2. Right hydronephrosis. 3. Urinary tract infections. OPERATIONS PERFORMED: Note, these were all staged procedures as part of multi-staged and multi-step process in managing the patient's urolithiasis. 1. Right-sided extracorporeal shockwave lithotripsy (separate procedure performed for the nephrolithiasis done from separate approach). 2. Cystourethroscopy with bilateral ureteral catheterization and retrograde ureteropyelography (separate procedure performed for the urine tract infections). 3. Interpretation of retrograde ureteropyelography. 4. Supervision of fluoroscopy, no radiologist present. 5. Cystourethroscopy with insertion of right indwelling ureteral stent (separate procedure performed to relieve the hydronephrosis). ANESTHESIA: General. COMPLICATIONS: None. CLINICAL SUMMARY: Warner Tong is a 60-year-old man with a right upper pole hydronephrosis. He has large right renal cyst. He has upper and lower pole stones and he is brought for the above procedures. He is aware of the risks of bleeding, infection, injury to adjacent structures, need for additional procedures, and elected to proceed. OPERATIVE PROCEDURE IN DETAIL: Informed consent was verified. Warner Tong was properly identified, taken to the operating room, and placed on the lithotripsy table in supine position. Anesthesia was uneventfully begun. The patient's nephrolithiasis was localized with biplanar fluoroscopy. A total of 3000 shocks were delivered, distributed them between the 2 stones with fragmentation noted. These stones were lightly calcified. The patient was then carefully and gently repositioned in dorsal lithotomy position with all pressure points well padded. His genitalia were prepared and draped in usual sterile fashion. The cystoscope sheath with visual obturator in place was atraumatically inserted into the patient's urethra, was guided unremarkable distal urethra through the normal sphincteric region through the prostate bed, which was significant for visually obstructing BPH. There was yellow sand consistent with uric acid urolithiasis, which was present in the prostatic urethra as well as in the dependent portion of the bladder. Normally positioned configured ureteral orifices were identified. There were no suspicious lesions. A ureteral catheter was used to cannulate each ureter and retrograde ureteropyelograms were performed. With cystoscopic and fluoroscopic guidance, a right-sided indwelling ureteral stent was then placed, it was coiled in the patient's kidneys as well as the patient's bladder. The retaining suture was cut short. Interpretation of retrograde ureteropyelography contrast was instilled in retrograde fashion bilaterally. The left side exhibited no tumors, no stones, no diverticula, no hydronephrosis. Unobstructed drainage was observed fluoroscopically. The right hand side exhibited filling defects, where we treated both stones consistent with stone debris as well as blood clots. The stent was in good position, coiled in the patient's kidneys as well as the patient's bladder at the end of the case. The patient's bladder was drained and cystoscope was withdrawn. A belladonna and opium suppository were placed revealing a 35 g prostate, smooth and non-fluctuant without any nodules. The patient was then uneventfully reversed from anesthesia and taken to recovery in stable condition. There were no complications to the procedure. He tolerated the procedure well. Explicit postop instructions were given. Plans will be to return the patient to the operating room after several weeks to remove his stent, perform right ureteroscopy, have laser standby, and hopefully render the patient stent free and stone free. Following that procedure, ongoing urological followup for metabolic stone workup as well as long-term stone prevention is necessary. Gautam Gamino MD [facility] /[id number] cc: Candido Garcia III, MD
== END | disposition home or self-care (01) ==
LOC: OR 05:24
PROVIDERS: ATTEND Urology
DX: N20.0 Calculus of kidney (principal); N13.30 Unspecified hydronephrosis; N39.0 Urinary tract infection, site not specified; N40.1 Benign prostatic hyperplasia with lower urinary tract symptoms; N13.8 Other obstructive and reflux uropathy; I10 Essential (primary) hypertension; I25.10 Atherosclerotic heart disease of native coronary artery without angina pectoris; E11.9 Type 2 diabetes mellitus without complications; M19.90 Unspecified osteoarthritis, unspecified site; Z01.810 Encounter for preprocedural cardiovascular examination; Z01.812 Encounter for preprocedural laboratory examination; Z01.818 Encounter for other preprocedural examination; Z79.82 Long term (current) use of aspirin; Z79.84 Long term (current) use of oral hypoglycemic drugs
CPT/HCPCS: 36415; 50590; 74018; 80048; 82948; 83970; 84550; 85025; 93005; C1758; C2617; J0696; J1100; J2001; J2250; J2405

== ENCOUNTER → 2020-02-21 | Day surgery (SDC) | payer OTHER ==
[~2020-02-21] MED LIST changes: +FENTANYL CITRATE/PF 100MCG/2 ML INJ ONE; +IOPAMIDOL 300MG/ML 50ML INFUS..BTL IV ONE; -IOPAMIDOL 610MG/1ML 300 MG/ML VIAL IV ONE; +ROCURONIUM BROMIDE 10 MG/ML 5ML VIAL IV ONE
--- NOTE | 2020-02-21 10:12 | Diagnostic Imaging Report ---
EXAM: ABDOMEN-1VIEW ([facility]) DATE: 02/21/2020 8:49 AM INDICATION: Stones, ureteral stent COMPARISON: 02/01/2020 FINDINGS: There as been interval placement of a right-sided double-J ureteral stent. No radiographically evident renal calculi are appreciated noting bowel gas partially obscures renal shadows. Stable phleboliths noted within the pelvis. No other abnormal intra-abdominal calcifications are identified. Bowel gas pattern is nonobstructive. The osseous structures demonstrate stable degenerative changes without evidence for acute abnormality. IMPRESSION: Interval placement of a right-sided double-J ureteral stent. Signed by: Dr. Robson Chuadhry MD on 02/21/2020 10:09 AM
[2020-02-21 12:45] VITALS: BP 144/88
--- NOTE | 2020-02-22 02:36 | Operative Report ---
DATE OF PROCEDURE: 02/21/2020 SURGEON: Gautam Gamino MD PREOPERATIVE DIAGNOSES: 1. Right urolithiasis. 2. Right indwelling ureteral stent. POSTOPERATIVE DIAGNOSES: 1. Right nephrolithiasis. 2. Right ureterolithiasis. 3. 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 4. Right indwelling ureteral stents. PROCEDURES PERFORMED: 1. Cystourethroscopy with calibration and dilation of urethral stricture (separate procedure performed for the diagnosis of stricture). 2. Cystourethroscopy with complicated removal of right indwelling ureteral stent (separate procedure performed for the diagnosis of stent, done with separate scope). 3. Right semi-rigid ureteroscopy with stone manipulation (separate performed for the ureterolithiasis). 4. Right flexible ureteropyeloscopy with stone manipulation and extraction (separate procedure performed for the right nephrolithiasis). 5. Radiological services with supervision and interpretation of ureteroscopy. 6. Interpretation of retrograde ureteropyelography. 7. Supervision of fluoroscopy, no radiologist present. ANESTHESIA: General. COMPLICATIONS: None. CLINICAL SUMMARY: Warner Tong is a 60-year-old man with urolithiasis. He has had a previous procedure and stent in place. He was brought to the operating room for the above procedures. He is aware of the risks of bleeding, infection, injury to adjacent structures, need for additional procedures and elected to proceed. OPERATIVE PROCEDURE IN DETAIL: Informed consent was verified. Warner Tong was properly identified, taken to the operating room, and placed on the cystoscopy table in supine position. Anesthesia was uneventfully begun. The patient was then carefully and gently repositioned in dorsal lithotomy position. All pressure points well padded. His genitalia were prepared and draped in usual sterile fashion. The cystoscope sheath with visual obturator in place was atraumatically inserted in the patient's urethra. It was guided unremarkable urethra through normal sphincteric region through the prostate bed, which was significant for BPH. There was also significant for fine sand and crusting the mucosa of the prostatic urethra. Fine sand also coated the inferior most portion of the bladder, but the bladder exhibited no lesions and no stone large enough to grasp. A guidewire was then placed alongside the stent and guided to the level of the patient's kidney. The stent was then grasped, completely removed, and discarded. A semi-rigid ureteroscope was then brought up alongside the guidewire into the right ureter. In the right ureter, we identified some fine sand, it was irrigated loose from the mucosa and the stones were too small to grasp, but they were manipulated, so they were loose and can easily pass. We then left the secondary guidewire in place, over which we placed the flexible ureteroscope and guided to the level of the patient's kidney. The patient's kidney exhibited multiple pockets of sand. No significantly sized stones were identified. A small stone was grasped with Nitinol tipless basket and extracted. This maneuver was performed twice. The sand was all of passable size and the stones were really too small to be extracted. The patient's bladder was drained. Cystoscope was withdrawn. Belladonna and opium suppository were placed revealing a 35 g prostate, that is smooth, nonfluctuant without any nodules. The patient was then uneventfully reversed from anesthesia and taken to recovery room in stable condition. There were no complications to the procedure. He tolerated the procedure well. Explicit postop instructions were given. We will follow the patient up in the office. Gautam Gamino MD [facility] /[id number] cc: Candido Garcia III, MD
== END | disposition home or self-care (01) ==
LOC: OR 08:10
PROVIDERS: ATTEND Urology
DX: N20.0 Calculus of kidney (principal); N20.1 Calculus of ureter; Z46.6 Encounter for fitting and adjustment of urinary device; N35.919 Unspecified urethral stricture, male, unspecified site; N40.1 Benign prostatic hyperplasia with lower urinary tract symptoms; R39.14 Feeling of incomplete bladder emptying; R35.1 Nocturia; R39.15 Urgency of urination; N39.0 Urinary tract infection, site not specified; E66.9 Obesity, unspecified; N43.40 Spermatocele of epididymis, unspecified; Q55.22 Retractile testis; N28.1 Cyst of kidney, acquired; M06.9 Rheumatoid arthritis, unspecified; M54.2 Cervicalgia; E11.9 Type 2 diabetes mellitus without complications; I10 Essential (primary) hypertension; E78.5 Hyperlipidemia, unspecified; Z79.84 Long term (current) use of oral hypoglycemic drugs; Z79.82 Long term (current) use of aspirin; Z68.41 Body mass index [BMI] 40.0-44.9, adult
CPT/HCPCS: 36415; 74018; 74420; 82948; 88300; C1758; J0696; J1100; J2001; J2250; J2405; J3010